=== PATIENT | male | born 1980 | race Caucasian/White ===

== ENCOUNTER → 2020-10-30 | Outpatient (CLI) | payer OTHER | LOC: M.SLEEPLAB 13:30 → M.PUL 13:34 | PROVIDERS: ATTEND Family Medicine | DX: Z00.00 Encounter for general adult medical examination without abnormal findings (principal); R06.83 Snoring; G47.30 Sleep apnea, unspecified; I10 Essential (primary) hypertension; R39.11 Hesitancy of micturition; F17.210 Nicotine dependence, cigarettes, uncomplicated ==